=== PATIENT | female | born 1970 | race Caucasian/White ===

== ENCOUNTER 2016-10-21 12:03 | Emergency (ER) | payer BC ==
--- NOTE | 2016-10-21 13:47 | ER PHYSICIAN DOCUMENTATION ---
Physician Documentation [facility] Name:Kandy Love Age:45 yrs Sex:Female :1970 Arrival Date:10/21/2016 Time:12:03 Bed1 Private MD: Alireza Cole Disposition: 10/21/16 13:04 Discharged to Home/Self Care. Impression: Distal Fibula Fracture. - Condition is Fair. - Discharge Instructions: ANKLE FRACTURE (Distal Fibula), closed. - Prescriptions for Hydrocodone- Acetaminophen 5-325 mg Oral Tablet - take 1 tablet by ORAL route every 6 hours As needed; 20 tablet. - Medical Reconciliation form form. - Follow up: Armen Samaniego DO, Terrell Masterson MD; When: 4- 6 days; Reason: Continuance of care. - Problem is new. - Symptoms have improved. HPI: 10/21 12:19 This 45 yrs old Female presents to ER via Private Vehicle with complaints of sc Ankle Injury - L. 12:19 The patient presents with an injury, swelling, tenderness. The complaints affect the nv left ankle. Onset: The symptom(s)/episode began/occurred just prior to arrival. Context: The problem was sustained outdoors, resulted from a mis-step by the patient, The mechanism of injury involved inversion of the affected ankle. The patient can partially bear weight on the affected extremity. the patient is able to ambulate, with moderate difficulty. Associated signs and symptoms: The patient has no apparent associated signs or symptoms. Historical: - Allergies: No known drug Allergies; - Home Meds: 1. sertraline 100 mg oral tab once daily - PMHx: DEPRESSION; - PSHx: nose ; - Tetanus: < 10 years. - Ebola Screening: : Patient negative for fever greater than or equal to 101.5 degrees Fahrenheit, and additional compatible Ebola Virus Disease symptoms. Patient denies exposure to infectious person. Patient denies travel to an Ebola-affected area in the 21 days before illness onset. No symptoms or risks identified at this time. . - Immunization history: Flu Vaccine None. - Social history: Smoking status: Patient states was never smoker of tobacco. ROS: 12:19 Constitutional: Negative for fever, chills, and weight loss. sc Eyes: Negative for injury, pain, redness, and discharge. ENT: Negative for injury, pain, and discharge. Neck: Negative for injury, pain, and swelling. Skin: Negative for injury, rash, and discoloration. 12:19 Neuro: Negative for headache, weakness, numbness, tingling, and seizure. sc 12:19 MS/extremity: Positive for injury or acute deformity, swelling, tenderness. Exam: Constitutional: This is a well developed, well nourished patient who is awake, alert, and in no acute distress. Head/Face: Normocephalic, atraumatic. Eyes: Pupils equal round and reactive to light, extra-ocular motions intact. Lids and lashes normal. Conjunctiva and sclera are non-icteric and not injected. Cornea within normal limits. Periorbital areas with no swelling, redness, or edema. Neck: Trachea midline, no thyromegaly or masses palpated, and no cervical lymphadenopathy. Supple, full range of motion without nuchal rigidity, or vertebral point tenderness. No meningismus. Back: No spinal tenderness. No costovertebral tenderness. Full range of motion. Skin: Warm, dry with normal turgor. Normal color with no rashes, no lesions, and no evidence of cellulitis. 12:20 Neuro: Awake and alert, GCS 15, oriented to person, place, time, and situation. sc Cranial nerves II-XII grossly intact. Motor strength 5/5 in all extremities. Sensory grossly intact. Cerebellar exam normal. Normal gait. 12:20 Musculoskeletal/extremity: Extremities: grossly normal except: ecchymosis, pain, swelling, tenderness, ROM: limited passive range of motion due to pain, Circulation is intact in all extremities. Sensation intact. Vital Signs: 12:18 BP 109 / 76; Pulse 83; Resp 16; Temp 98.1(O); Pulse Ox 95% on R/A; Weight 72.12 kg; cb Height 6 ft. 0 in. (182.88 cm); Pain 5/10; 12:18 Body Mass Index 21.56 (72.12 kg, 182.88 cm) cb MDM: 12:09 Patient medically screened. nv 12:22 Differential diagnosis: fracture, sprain. Data reviewed: vital signs, nurses notes, sc radiologic studies, and as a result, I will discharge patient. Counseling: I had a detailed discussion with the patient and/or guardian regarding: the historical points, exam findings, and any diagnostic results supporting the discharge/admit diagnosis, radiology results, the need for outpatient follow up. 10/21 12:16 Order name: Ice Packs; Complete Time: 13:46 nv 10/21 12:53 Order name: Walking Boot; Complete Time: 17:58 nv 10/21 12:55 Order name: ORTHO: Crutches & Training; Complete Time: 17:58 nv Dispensed Medications: No medications were administered Signatures: Jada Jeffries RN RN cb Twombly, Summer, RN RN st Chew, Scott, MD MD nv
--- NOTE | 2016-10-21 13:47 | ER NURSING DOCUMENTATION ---
Nurse's Notes [facility] Name:Kandy Love Age:45 yrs Sex:Female :1970 Arrival Date:10/21/2016 Time:12:03 Bed1 Private MD: Diagnosis:Distal Fibula Fracture Presentation: 10/21 12:15 Presenting complaint: Patient states: hiking /climbing on rock L ankle @ 1100. cb Transition of care: Other RMNP. Notified ED Physician of patient's arrival and CC Dr. Dye notified. 12:15 Method Of Arrival: Private Vehicle cb 12:15 Acuity: DARVIN 4 cb Triage Assessment: 12:23 General: Appears in no apparent distress, well groomed, Behavior is cooperative. Pain: cb Complains of pain in left lateral ankle Pain currently is 5 out of 10 on a pain scale. At worst was 9 out of 10 on a pain scale. EENT: No deficits noted. Neuro: Level of Consciousness is awake, alert, Oriented to person, place, time, event. Cardiovascular: Pulses are 2+ in left dorsalis pedis artery. Respiratory: Airway is patent Trachea midline Respiratory effort is even, unlabored, Respiratory pattern is regular, symmetrical. GI: No deficits noted. : No deficits noted. Derm: No deficits noted. Musculoskeletal: Circulation, motion, and sensation intact Capillary refill < 3 seconds Range of motion limited in all extremities. Swelling present in left lateral ankle. Injury Description: fall. Historical: - Allergies: No known drug Allergies; - Home Meds: 1. sertraline 100 mg oral tab once daily - PMHx: DEPRESSION; - PSHx: nose ; - Tetanus: < 10 years. - Ebola Screening: : Patient negative for fever greater than or equal to 101.5 degrees Fahrenheit, and additional compatible Ebola Virus Disease symptoms. Patient denies exposure to infectious person. Patient denies travel to an Ebola-affected area in the 21 days before illness onset. No symptoms or risks identified at this time. . - Immunization history: Flu Vaccine None. - Social history: Smoking status: Patient states was never smoker of tobacco. Screenin:29 Infectious Disease Risk None. Abuse screen: Denies threats or abuse. Denies injuries cb from another. Nutritional screening: No deficits noted. Vital Signs: 12:18 BP 109 / 76; Pulse 83; Resp 16; Temp 98.1(O); Pulse Ox 95% on R/A; Weight 72.12 kg; cb Height 6 ft. 0 in. (182.88 cm); Pain 5/10; 12:18 Body Mass Index 21.56 (72.12 kg, 182.88 cm) cb ED Course: 12:06 Patient arrived in ED. ama 12:09 Alireza Dye MD is Attending Physician. ct 12:15 Jada Jeffries, RN is Primary Nurse. cb 12:17 Triage completed. cb 12:29 Valuables Remains with patient Patient has correct armband on for positive cb identification. Bed in low position. Call light in reach. Adult w/ patient. 12:29 Notified ED Physician of patient's arrival and chief complaint. Dr. Dye notified. cb 12:30 Ice pack to injury. Elevated left ankle. cb 12:52 Port Xray Completed. ms 13:03 Armen Samaniego DO, Terrell Masterson MD is Referral Physician. ct 13:15 Crutch training done. Walking boot applied. cb Administered Medications: No medications were administered Outcome: 13:04 Discharge ordered by . ct 13:30 Discharged to home ambulatory, with crutches, with family. cb 13:30 Condition: good 13:30 Discharge instructions given to patient, Instructed on crutch walking, discharge instructions, follow up and referral plans. Demonstrated understanding of instructions. 13:30 Discharge Assessment: Patient awake, alert and oriented x 3. No cognitive and/or cb functional deficits noted. Patient verbalized understanding of disposition instructions. 13:46 [address] ED[address] st Signatures: Jada Jeffries, Lisette Wade RN, cb RN Alireza Odell MD MD ct Shiela Garcia ms Grant Palacio, Reg Reg ama
--- NOTE | 2016-10-24 14:12 | RADIOLOGY REPORT ---
Three views of the left ankle demonstrate a nondisplaced eversion type oblique fracture of the distal fibula. The tibia, talus and mortise are intact. The visualized joints appear unremarkable. IMPRESSION: Nondisplaced oblique eversion type fracture of the left distal fibula. MTDD
== END 2016-10-21 13:47 | disposition home or self-care (01) ==
LOC: ER 12:03
DX: S82.892A Other fracture of left lower leg, initial encounter for closed fracture (principal); W18.49XA Other slipping, tripping and stumbling without falling, initial encounter; Y92.89 Other specified places as the place of occurrence of the external cause; Y93.01 Activity, walking, marching and hiking
CPT/HCPCS: 99283